=== PATIENT | female | born 1990 | race African-American/Black ===

== ENCOUNTER 2017-07-27 17:20 | Emergency (ER) | payer OTHER ==
[2017-07-27 17:24] VITALS: BP 115/73; PULSE 99; TEMP 99.1; BMI 33.9
[2017-07-27] MEDS ORDERED: KETOROLAC TROMETHAMINE 60 MG/2 ML VIAL IM ONE (18:21)
[2017-07-27] MEDS ORDERED: KETOROLAC TROMETHAMINE 60 MG/2 ML VIAL ONE (18:30)
--- NOTE | 2017-07-27 18:50 | PDOC ---
History of Present Illness - General Chief Complaint: Pain Stated Complaint: PAIN Time Seen by Provider: 07/27/17 18:09 History Source: Patient Exam Limitations: No Limitations - History of Present Illness Initial Comments: 07/27/17 19:02 Pt. is a 27 y/o female with no PMH who presents to the ED c/o R shoulder pain. Pt. is right hand dominant. Pt. states she was lifting a heavy box over her head this morning when she felt her shoulder pull. She states that it started hurting later in the afternoon and she wanted to get it checked out. Denies weakness, numbness and tingling in the shoulder. Denies falling or head trauma, elbow, wrist and hand trauma. Past History - Travel Traveled outside of the country in the last 30 days: No Close contact w/someone who was outside of country & ill: No - Past Medical History Allergies/Adverse Reactions: Allergies Allergy/AdvReac Type Severity Reaction Status Date / Time No Known Allergies Allergy Verified 07/27/17 17:24 Home Medications: Ambulatory Orders Unobtainable [Unobtainable] 07/27/17 Anemia: Yes - Suicide/Smoking/Psychosocial Hx Smoking History: Never smoked Information on smoking cessation initiated: No Hx Alcohol Use: Yes (SOCIAL) Drug/Substance Use Hx: No Substance Use Type: None Review of Systems - Review of Systems Able to Perform ROS?: Yes Comments:: 07/27/17 18:36 CONSTITUTIONAL: Absent: fever, chills, diaphoresis, generalized weakness, malaise, loss of appetite HEENT: Absent: rhinorrhea, nasal congestion, throat pain, throat swelling, difficulty swallowing, mouth swelling, ear pain, eye pain, visual Changes CARDIOVASCULAR: Absent: chest pain, loss of consciousness, palpitations, irregular heart rate, peripheral edema RESPIRATORY: Absent: cough, shortness of breath, dyspnea with exertion, orthopnea, wheezing, stridor, hemoptysis GASTROINTESTINAL: Absent: abdominal pain, abdominal distension, nausea, vomiting, diarrhea, constipation, melena, hematochezia GENITOURINARY: Absent: dysuria, frequency, urgency, hesitancy, hematuria, flank pain, genital pain MUSCULOSKELETAL: Present: R shoulder pain Absent: myalgia, arthralgia, joint swelling SKIN: Absent: rash, itching, pallor HEMATOLOGIC/IMMUNOLOGIC: Absent: easy bleeding, easy bruising, lymphadenopathy, frequent infections ENDOCRINE: Absent: unexplained weight gain, unexplained weight loss, heat intolerance, cold intolerance NEUROLOGIC: Absent: headache, focal weakness or paresthesias, dizziness, unsteady gait, seizure, mental status changes, bladder or bowel incontinence PSYCHIATRIC: Absent: anxiety, depression, suicidal or homicidal ideation, hallucinations. Is the patient limited Cuban proficient: No *Physical Exam - Vital Signs Last Vital Signs Temp Pulse Resp BP Pulse Ox 99.1 F 99 H 20 115/73 99 07/27/17 17:21 07/27/17 17:21 07/27/17 17:21 07/27/17 17:21 07/27/17 17:21 - Physical Exam Comments: 07/27/17 18:35 GENERAL: [The patient is awake, alert, and fully oriented, in no acute distress. ] HEAD: [Normal with no signs of trauma.] EYES: [Pupils equal, round and reactive to light, extraocular movements intact, sclera anicteric, conjunctiva clear.] EXTREMITIES: [ (-) TTP. GH joint intact. Decreased ROM of the right shoulder. ABduction to 100 degrees. Flextion to 120 degrees. (+) pain with Edna's test. (-) empty can, drop shoulder, apprehension test, speeds test, yeurgeson's test, piano burns test. Radial pulses intact 2+ b/l, Gross sensation intact. Normal range of motion in all other joints, no edema.] NEUROLOGICAL: [Normal speech, normal gait.] PSYCH: [Normal mood, normal affect.] SKIN: [Warm, Dry, normal turgor, no rashes or lesions noted.] Medical Decision Making - Medical Decision Making 07/27/17 18:28 Pt. is a 27 y/o female who presents with one day of R shoulder pain. Based on physical exam, most likely a strain of the shoulder, possible labral issue. VVS , afebrile, pain controlled. Will discharge home with a sling, ibuprofen, and stretching exercises. Pt. is to not lift overhead for the next week. Pt. to follow up with ortho. *DC/Admit/Observation/Transfer Diagnosis at time of Disposition: Right shoulder strain Qualifiers: Encounter type: initial encounter Qualified Code(s): S46.911A - Strain of unspecified muscle, fascia and tendon at shoulder and upper arm level, right arm , initial encounter - Discharge Dispostion Disposition: HOME Condition at time of disposition: Good Admit: No - Referrals Referrals: Eyad Trammell MD [Staff Physician] - - Patient Instructions Printed Discharge Instructions: DI for Shoulder Pain Additional Instructions: You strained your shoulder lifting at work today. You may take Motrin as needed for pain starting tomorrow morning. You may take 800mg three times a day, not to exceed 3,000mg in one day. Do gentle range of motion exercises including small medium and large circles with the shoulder. Also walk your fingers up the wall. Avoid lifting more than 10 lbs until your symptoms resolve. Follow up with ortho in one week if you do not feel better. Return to the ED if you have worsening pain, numbness and tingling, or any changes in your symptoms - Post Discharge Activity Forms/Work/School Notes: Back to Work
== END 2017-07-27 18:55 | disposition home or self-care (01) ==
LOC: JERFT 17:20
PROC: 3E0233Z Introduction of Anti-inflammatory into Muscle, Percutaneous Approach (ICD-10-PCS; principal; 2017-07-27)
DX: S46.811A Strain of other muscles, fascia and tendons at shoulder and upper arm level, right arm, initial encounter (principal); X50.0XXA Overexertion from strenuous movement or load, initial encounter; Y93.89 Activity, other specified; Y92.512 Supermarket, store or market as the place of occurrence of the external cause; Y99.0 Civilian activity done for income or pay
CPT/HCPCS: 99281-25

== ENCOUNTER 2018-04-20 13:19 | Emergency (ER) | payer OTHER ==
[2018-04-20 13:30] VITALS: BP 119/69; PULSE 82; TEMP 98.7; BMI 32.1
[2018-04-20] MEDS ORDERED: ALBUTEROL SO4 2.5/IPRATROPIUM 0.5 INH SOL 3 ML VIAL.NEB. NEB ONE (13:56)
--- NOTE | 2018-04-20 14:02 | PDOC ---
History of Present Illness - General Chief Complaint: RX Refill Stated Complaint: SOB (ASTHMA) Time Seen by Provider: 04/20/18 13:52 History Source: Patient Exam Limitations: No Limitations - History of Present Illness Initial Comments: 04/20/18 14:02 27 yr female with c/o cough asthma started this AM. Pt also ran out of her asthma medication. pt speaking full sentences no diff breathing or swallowing. Past History - Past Medical History Allergies/Adverse Reactions: Allergies Allergy/AdvReac Type Severity Reaction Status Date / Time No Known Allergies Allergy Verified 07/27/17 17:24 Home Medications: Ambulatory Orders Albuterol Sulfate Inhaler - [Ventolin HFA Inhaler -] 2 inh PO Q4H #1 inh Anemia: Yes COPD: No - Suicide/Smoking/Psychosocial Hx Smoking History: Never smoked Have you smoked in the past 12 months: No Information on smoking cessation initiated: No Hx Alcohol Use: No Drug/Substance Use Hx: No Substance Use Type: None Review of Systems - Review of Systems Able to Perform ROS?: Yes Is the patient limited Icelandic proficient: No Constitutional: No: Symptoms Reported HEENTM: No: Symptoms Reported Respiratory: Yes: Cough. No: Symptoms reported Cardiac (ROS): No: Symptoms Reported ABD/GI: No: Symptoms Reported : No: Symptoms Reported Musculoskeletal: No: Symptoms Reported Integumentary: No: Symptoms Reported Neurological: No: Symptoms reported *Physical Exam - Vital Signs Last Vital Signs Temp Pulse Resp BP Pulse Ox 98.7 F 82 16 119/69 100 04/20/18 13:27 04/20/18 13:27 04/20/18 13:27 04/20/18 13:27 04/20/18 13:27 - Physical Exam General Appearance: Yes: Nourished, Appropriately Dressed HEENT: positive: EOMI, VIJAYA, TMs Normal. negative: Pharynx Normal Neck: positive: Supple. negative: Tender Respiratory/Chest: positive: Lungs Clear, Normal Breath Sounds, Wheezing (mild expiratory ). negative: Rhonchi, Stridor Cardiovascular: positive: Regular Rhythm, Regular Rate Gastrointestinal/Abdominal: positive: Normal Bowel Sounds, Soft Musculoskeletal: positive: Normal Inspection Extremity: positive: Normal Capillary Refill, Normal Inspection, Normal Range of Motion Integumentary: positive: Normal Color, Dry, Warm Neurologic: positive: Fully Oriented, Alert, Normal Mood/Affect, Normal Response , Motor Strength 5/5 *DC/Admit/Observation/Transfer Diagnosis at time of Disposition: Asthma attack Qualifiers: Asthma severity: mild Asthma persistence: intermittent Qualified Code(s): J45.21 - Mild intermittent asthma with (acute) exacerbation - Prescriptions Prescriptions: Albuterol Sulfate Inhaler - [Ventolin HFA Inhaler -] 2 inh PO Q4H #1 inh - Referrals - Patient Instructions Additional Instructions: use the medication as prescribed follow with your doctor within 2-3 days for follow up - Post Discharge Activity
== END 2018-04-20 14:09 | disposition home or self-care (01) ==
LOC: JERFT 13:19
PROC: 3E0F7GC Introduction of Other Therapeutic Substance into Respiratory Tract, Via Natural or Artificial Opening (ICD-10-PCS; principal; 2018-04-20)
DX: J45.21 Mild intermittent asthma with (acute) exacerbation (principal)
CPT/HCPCS: 99281-25; J7620

== ENCOUNTER 2019-08-15 18:48 | Emergency (ER) | payer SELFPAY ==
[2019-08-15] MEDS ORDERED: ALBUTEROL SO4 2.5/IPRATROPIUM 0.5 INH SOL 3 ML VIAL.NEB. NEB ONE ×3 (18:52→20:45)
--- NOTE | 2019-08-15 18:53 | PDOC ---
Rapid Medical Evaluation Time Seen by Provider: 08/15/19 18:51 Medical Evaluation: Allergies Allergy/AdvReac Type Severity Reaction Status Date / Time No Known Allergies Allergy Verified 07/27/17 17:24 08/15/19 18:52 I have performed a brief in-person evaluation of this patient. The patient presents with a chief complaint of: asthma Pertinent physical exam findings:stable and in NAD, non-focal I have ordered the following: duoneb The patient will proceed to the ED for further evaluation. 08/15/19 18:52
[2019-08-15 18:54] VITALS: BP 124/64; PULSE 95; TEMP 98.8; BMI 33.0
[2019-08-15] MEDS ORDERED: MAGNESIUM SULF 50% (8.12 MEQ/2 ML-1 GM VIAL) IVPB ONE (19:44)
[2019-08-15] MEDS ORDERED: DEXAMETHASONE SOD PHOSPHATE 20 MG/5 ML VIAL IVPB ONE (19:44)
[2019-08-15] MEDS ORDERED: DEXAMETHASONE SOD PHOSPHATE 4 MG/1 ML VIAL ONE (19:51)
[2019-08-15] MEDS ORDERED: DEXAMETHASONE SOD PHOSPHATE 10 MG/1 ML VIAL ONE (19:51)
[2019-08-15] MEDS ORDERED: MAGNESIUM SULF 50% (8.12 MEQ/2 ML-1 GM VIAL) ONE (19:59)
[2019-08-15] MEDS: ALBUTEROL SO4 2.5/IPRATROPIUM 0.5 INH SOL 3 ML VIAL.NEB. NEB SCH ×3 (20:20→20:59)
--- NOTE | 2019-08-15 21:09 | PDOC ---
History of Present Illness - General Chief Complaint: Asthma Stated Complaint: DIFFICULTY BREATHING/ASTHMA Time Seen by Provider: 08/15/19 18:51 - History of Present Illness Initial Comments: 08/15/19 21:07 29-year-old female with a past medical history significant for asthma presents for evaluation of exacerbation of asthma over the last 2 days without systemic symptoms Past History - Past Medical History Allergies/Adverse Reactions: Allergies Allergy/AdvReac Type Severity Reaction Status Date / Time No Known Allergies Allergy Verified 08/15/19 18:54 Home Medications: Ambulatory Orders Albuterol Sulfate Inhaler - [Ventolin HFA Inhaler -] 2 inh PO Q4H #1 inh Mometasone/Formoterol [Dulera 200 Mcg/5 Mcg Inhaler] 2 inh IH BID #13 gm Mometasone/Formoterol [Dulera 200 Mcg/5 Mcg Inhaler] 13 gm PO ASDIR 04/20/18 Anemia: Yes COPD: No - Psycho Social/Smoking Cessation Hx Smoking History: Never smoked Have you smoked in the past 12 months: No Hx Alcohol Use: No Drug/Substance Use Hx: No Substance Use Type: None Review of Systems - Review of Systems Constitutional: No: Fever Respiratory: Yes: Cough, Wheezing *Physical Exam - Vital Signs Last Vital Signs Temp Pulse Resp BP Pulse Ox 98.8 F 95 H 18 124/64 97 08/15/19 18:52 08/15/19 18:52 08/15/19 18:52 08/15/19 18:52 08/15/19 18:52 - Physical Exam Comments: 08/15/19 21:08 GENERAL: The patient is awake, alert, and fully oriented, in no acute distress. HEAD: Normal with no signs of trauma. EYES: sclera anicteric, conjunctiva clear. ENT: Ears normal NECK: Normal range of motion LUNGS: Decreased breath sounds at the bases with right-sided wheezing HEART: S1 and S2 without murmur, rub or gallop. ABDOMEN: Soft, nontender, normoactive bowel sounds. No guarding, no rebound. No masses. EXTREMITIES: Normal range of motion, no edema. No clubbing or cyanosis. No cords, erythema, or tenderness. NEUROLOGICAL: Cranial nerves II through XII grossly intact. Normal speech, normal gait. PSYCH: Normal mood, normal affect. SKIN: Warm, Dry, normal turgor, no rashes or lesions noted. ED Treatment Course - RADIOLOGY Radiology Studies Ordered: Category Date Time Status CHEST PA & LAT [RAD] Stat Radiology 08/15/19 19:15 Taken - Medications Given in the ED: ED Medications Discontinued Medications Generic Name Dose Route Start Last Admin Trade Name Freq PRN Reason Stop Dose Admin Albuterol/Ipratropium 1 amp 08/15/19 18:52 08/15/19 19:26 Duoneb - NEB 08/15/19 18:53 1 amp ONCE ONE Administration Albuterol/Ipratropium 1 amp 08/15/19 19:45 08/15/19 20:59 Duoneb - NEB 08/15/19 20:31 1 amp Q15M CHRIS Administration Dexamethasone Sodium Phosphate 12 mg 08/15/19 19:44 08/15/19 20:18 Decadron Injection - IVPB 08/15/19 19:45 12 mg ONCE ONE Administration Magnesium Sulfate 2 gm 08/15/19 19:44 08/15/19 20:18 Magnesium Sulfate IVPB 08/15/19 19:45 2 gm ONCE ONE Administration Medical Decision Making - Medical Decision Making 08/15/19 21:08 Patient cleared after for duo nebs albuterol treatment magnesium and Decadron follow-up with pulmonology Discharge - Discharge Information Problems reviewed: Yes Clinical Impression/Diagnosis: Asthma attack Condition: Improved - Admission No - Follow up/Referral Referrals: Burke Lilly MD, MD [Staff Physician] - - Patient Discharge Instructions Patient Printed Discharge Instructions: Asthma -- Adult Additional Instructions: Continue with your home medication as directed and return to the emergency room should symptoms worsen. Without fail, follow-up with pulmonology in 1 to 2 days for further evaluation and treatment options. - Post Discharge Activity
== END 2019-08-15 21:14 | disposition home or self-care (01) ==
LOC: JERFT 18:48
PROC: 3E0F7GC Introduction of Other Therapeutic Substance into Respiratory Tract, Via Natural or Artificial Opening (ICD-10-PCS; principal; 2019-08-15)
PROC: 3E033GC Introduction of Other Therapeutic Substance into Peripheral Vein, Percutaneous Approach (ICD-10-PCS; 2019-08-15)
DX: J45.901 Unspecified asthma with (acute) exacerbation (principal); D64.9 Anemia, unspecified
CPT/HCPCS: 71046-TC-FY; 99281-25

== ENCOUNTER 2020-11-28 13:02 | Emergency (ER) | payer OTHER ==
[2020-11-28 13:26] VITALS: BP 119/66; PULSE 71; TEMP 98.8; BMI 35.6
[2020-11-28] MEDS ORDERED: SODIUM CHLORIDE 0.9% 500 ML INFUS.BAG IV ONE (14:01)
[2020-11-28] MEDS ORDERED: ACETAMINOPHEN 1000 MG/100 ML VIAL (NON FORMULARY) IVPB ONE (14:02)
[2020-11-28] MEDS ORDERED: ACETAMINOPHEN INJECTION 100 ML IVPB ONE (14:06)
[2020-11-28 14:54] LABS: BASO % 0.3 % (0-2.0); EOS % 1.2 % (0-4.5); HEMATOCRIT 38.2 % (32.4-45.2); HEMOGLOBIN 12.9 GM/dL (10.7-15.3); LYMPH % 21.1 % (8-40); MCH 29.9 pg (25.7-33.7); MCHC 33.9 g/dl (32.0-36.0); MEAN CELL VOLUME 88.1 fl (80-96); MEAN PLT VOLUME 8.9 fl (7.5-11.1); MONO % 9.3 % (3.8-10.2); NEUT % 68.1 % (42.8-82.8); PLATELET COUNT 262 K/MM3 (134-434); RBC 4.33 M/mm3 (3.60-5.2); RDW 13.7 % (11.6-15.6); WHITE BLOOD COUNT 7.7 K/mm3 (4.0-10.0)
[2020-11-28 15:03] LABS: URINE APPEARANCE CLEAR; URINE BILIRUBIN NEGATIVE (NEGATIVE); URINE COLOR YELLOW; URINE GLUCOSE (UA) NEGATIVE (NEGATIVE); URINE KETONE NEGATIVE (NEGATIVE); URINE LEUK ESTERASE NEGATIVE (NEGATIVE); URINE NITRITE NEGATIVE (NEGATIVE); URINE PROTEIN NEGATIVE (NEGATIVE); URINE UROBILINOGEN 0.2 mg/dL (0.2-1.0)
[2020-11-28 15:05] LABS: HCG,QUALITATIVE URINE Negative
[2020-11-28 15:15] LABS: POTASSIUM 3.8 mmol/L (3.5-5.1)
[2020-11-28 15:17] LABS: ALBUMIN 3.4 g/dl (3.4-5.0); BLOOD UREA NITROGEN 10.9 mg/dL (7-18); CALCIUM 8.4 mg/dL (8.5-10.1)
[2020-11-28 15:20] LABS: CREATININE 0.8 mg/dL (0.55-1.3)
[2020-11-28 15:22] LABS: BILIRUBIN,TOTAL 0.4 mg/dL (0.2-1); TOT PROT 7.2 g/dl (6.4-8.2)
== END 2020-11-28 16:30 | disposition home or self-care (01) ==
LOC: JER 13:02
PROC: 3E0333Z Introduction of Anti-inflammatory into Peripheral Vein, Percutaneous Approach (ICD-10-PCS; principal; 2020-11-28)
DX: R10.30 Lower abdominal pain, unspecified (principal)
CPT/HCPCS: 36415; 80053; 81003; 83690; 84703; 85025; 87086; 99284-25; J0131